=== PATIENT | female | born 1980 | race Caucasian/White ===

== ENCOUNTER 2021-05-26 12:23 | Emergency (ER) | payer SELFPAY ==
[2021-05-26 12:40] VITALS: TEMP 36.8; BMI 29.2
--- NOTE | 2021-05-26 12:46 | ED_ITS ---
HPI - Wound/Laceration General: Chief Complaint: Extremity Injury, Upper Stated Complaint: Cut Rght Arm Time Seen by Provider: 05/26/21 12:46 History of Present Illness: HPI narrative: Ms. Delgadillo is a 41-year-old lady without significant past medical history presents emergency department due to arm laceration. Laceration happened just prior to arrival. She was reaching down and cut it on a piece of glass from a picture frame that had a chip out of it. She immediately had nonpulsatile bleeding and pain. Pain is moderate intensity. Bleeding controlled with direct pressure. No other recent changes in health. She is up-to-date on tetanus estimates approximately 1.5 years ago. Review of Systems General: Reports: 10 or more systems reviewed and unremarkable except in HPI and below Physical Exam Narrative: EXAM NARRATIVE: GENERAL/CONSTITUTIONAL - well-appearing. No acute distress. Eyes - PERRL, no conjunctival injection ENMT - Atraumatic external nose and ears. Moist mucous membranes NECK - supple. trachea midline CARDIOVASCULAR - regular rate and rhythm. Peripheral pulses 2+ and equal RESPIRATORY -clear to auscultation bilaterally. No retractions or accessory muscle use. ABDOMEN/GI - Nontender/Nondistended. No tenderness to percussion or evidence of peritonitis MSK - Extremities without obvious deformity or tenderness to palpation SKIN - Warm, Dry. Laceration as noted in HPI, distal CMS intact. NEURO - alert and appropriately oriented. strength and sensation intact. Moves all extremities equally. PSYCH - Appropriate mood and affect Procedures Laceration Laceration 1: Site: upper extremity Side (If applicable): right Size (cm): 6 Description: flap and irregular Depth: simple, single layer Local Anesthetic: lidocaine 1% and with epi Amount of anesthesia used (mL): 10 Pre-repair: wound explored, irrigated extensively and deep structures intact Skin layer closed with: nylon Size (cm): 3-0 Number of sutures: 9 Technique: simple, interrupted Course ED course: - Patient was seen and evaluated by me at bedside -Vital signs obtained - Initial evaluation notable for no acute distress, nontoxic appearance. - Imaging notable for no foreign bodies - Laceration repaired, patient tolerated procedure well - Upon serial reexamination after treatment the patient was improved - Based on patient history, evaluation, labs, and imaging as interpreted the most likely cause of the patient's condition is laceration - The results of ED evaluation were discussed with the patient including prescriptions and/or symptomatic cares (if applicable) including appropriate and responsible use, followup plan, and return precautions. The patient verbalized understanding and felt safe for discharge. - Patient discharged in satisfactory condition. Vital Signs: Vital signs: Vital Signs Temperature 98.2 F 05/26/21 12:40 Pulse Rate 88 05/26/21 14:53 Respiratory Rate 15 05/26/21 14:53 Pulse Oximetry 100 05/26/21 14:53 MDM - Wound/Laceration Medical Records: Attestation: I reviewed the patient's medical records. Lab Data: Attestation: I reviewed the patient's lab results. Discharge Plan Discharge Patient Disposition: Home Clinical Impression: Arm laceration Condition: Stable Discharge Orders: Discharge ED (Routine); Ordered 05/26/21 Ordered By: Miguel Osbonre Discharge Diet: Usual diet Discharge Activity: Resume usual activity Patient Instructions: Care For Your Stitches (ED), Laceration (ED) Activity Restrictions/Additional Instructions: Thank you for visiting the emergency department. You were seen and evaluated f or arm laceration. This was repaired with sutures at bedside. Please follow care instructions given. Stitches need to be removed in 10 days. Please return for any signs of infection. Please follow-up with your primary care provider. Please return for anything else that you are concerned about and feel needs emergency department evaluation. Coding Level of Care Code ED Automotive Painter Helper for Oscar Santos
[2021-05-26 12:47] VITALS: RESP 15
--- NOTE | 2021-05-26 13:06 | XRR_ITS ---
PROCEDURE INFORMATION: Exam: XR Right Forearm Exam date and time: 05/26/2021 1:06 PM Age: 41 years old Clinical indication: Injury or trauma; Fall; Laceration; Arm, lower; Right; Additional info: Laceration, ? obvious foreign body TECHNIQUE: Imaging protocol: XR Right forearm. Views: 2 views. COMPARISON: No relevant prior studies available. FINDINGS: Bones/joints: Normal. Soft tissues: Foot laceration noted along the forearm. No evidence of radiopaque foreign body. XR/XR forearm RT 2V [id number] IMPRESSION: No evidence of radiopaque foreign body.
[2021-05-26 14:53] VITALS: PULSE 88; RESP 15; O2SAT 100
== END 2021-05-26 14:54 | disposition home or self-care (01) ==
PROVIDERS: Emergency Provider Emergency Medicine
DX: S41.111A Laceration without foreign body of right upper arm, initial encounter (principal); W25.XXXA Contact with sharp glass, initial encounter
CPT/HCPCS: 12002; 73090; 99282

== ENCOUNTER 2023-03-20 13:37 | Emergency (ER) | payer MEDICAID, SELFPAY ==
[2023-03-20 13:40] VITALS: BP 137/83; PULSE 92; RESP 18; TEMP 36.8; O2SAT 100; BMI 23.8
--- NOTE | 2023-03-20 14:13 | ED_ITS ---
HPI - Extremity Problem General: Chief complaint: Extremity Injury, Lower Stated complaint: left foot pain Time Seen by Provider: 03/20/23 13:41 Source: patient Mode of arrival: ambulatory History of Present Illness: 43-year-old female presents to the emergency room with complaint of sore on her left foot. She was seen yesterday for it and given a prescription however she was arrested last evening is currently incarcerated and never got her prescription filled. No fever sweats chills no drainage from the lesion Onset (ago): day(s) Pain Consistency: constant Location: right Radiation: none Relieving factors: nothing Exacerbating factors: nothing Associated symptoms: Deny chest pain or fever(s) Review of Systems Const: Denies: fever(s) or chills Card: Denies: chest pain, dyspnea on exertion or orthopnea Resp: Denies: dyspnea GI: Denies: abdominal pain Skin/Breast: Reports: new lesions; Denies: sores Physical Exam Const: GENERAL APPEARANCE: cooperative and comfortable ORIENTATION/CONSCIOUSNESS: Yes awake, Yes oriented to person, Yes oriented to place and Yes oriented to time HENMT: COMMON NORMALS: normocephalic, atraumatic and hearing grossly normal bilaterally HEAD & SCALP: normocephalic and atraumatic Resp: COMMON NORMALS: normal respiratory effort, No retractions, No use of accessory muscles and clear to auscultation bilaterally AUSCULTATION: clear to auscultation bilaterally Cardio: COMMON NORMALS: regular rate, regular rhythm and No murmurs present (Cardio) RATE: regular rate RHYTHM: regular rhythm Extremity: COMMON NORMALS: normal to inspection, capillary refill normal, no clubbing, cyanosis or edema, no calf tenderness and no pedal edema OTHER: 2 x 3 inch partially deroofed blister with localized erythema on the left medial arch. No active drainage Neuro: SENSORIUM/ORIENTATION: Yes oriented to person, Yes oriented to place and Yes oriented to time Course Vital Signs: Vital signs: Vital Signs Temperature 98.2 F 03/20/23 13:40 Pulse Rate 92 03/20/23 13:40 Respiratory Rate 18 03/20/23 13:40 Blood Pressure 137/83 03/20/23 13:40 Pulse Oximetry 100 03/20/23 13:40 Oxygen Delivery Me thod Room Air 03/20/23 13:40 MDM - Extremity (Nontraumatic) Medical Decision Making Mildly inflamed the roof blister. Patient is currently incarcerated given another prescription for the mupirocin and Bactrim completed as prescribed Medical Records I reviewed the patient's medical records. Lab Data I reviewed the patient's lab results. Discharge Plan Discharge Patient Disposition: Admitted As Inpatient Clinical Impression: Cellulitis and abscess of foot Condition: Stable Discharge Diet: Usual diet Discharge Activity: Resume usual activity Coding Level of Care Code ED Automation Control Integrator for Oscar Santos
[2023-03-20 14:16] VITALS: BP 137/83; PULSE 80; O2SAT 100
== END 2023-03-20 14:32 | disposition admitted as inpatient to this hospital (09) ==
PROVIDERS: Emergency Provider Family Medicine
DX: L03.116 Cellulitis of left lower limb (principal)
CPT/HCPCS: 99281

== ENCOUNTER → 2023-07-27 15:59 | Outpatient (BNVA) | payer MEDICAID, SELFPAY | PROVIDERS: PCP Family Medicine; Visit Provider Family Medicine | DX: Z00.00 Encounter for general adult medical examination without abnormal findings (principal) | CPT/HCPCS: 80053; 80061; 84443; 85025 ==

== ENCOUNTER 2023-08-06 11:07 | Outpatient (CLI) | payer MEDICAID, SELFPAY ==
--- NOTE | 2023-08-06 11:10 | MM_ITS ---
WS: [id number] Bilateral screening 3D tomosynthesis digital mammogram, 08/06/2023 Clinical Data: breast cancer screening Comparison: None. Findings: The breast parenchymal pattern shows heterogeneous density. No spiculated masses or clustered calcifi cations are seen. There are no secondary signs of carcinoma. Impression: 1. Negative bilateral mammogram with no prior exam for review. 2. Recommend annual screening mammograms. MM/[place] [id number] BIRADS: 1-Negative FOLLOW UP: 1 Year Follow-up The CAD blast furnace checker was used.
== END 2023-08-06 11:08 | disposition home or self-care (01) ==
LOC: RAD 11:07
PROVIDERS: PCP Family Medicine; Visit Provider Family Medicine
DX: Z12.31 Encounter for screening mammogram for malignant neoplasm of breast (principal); Z00.00 Encounter for general adult medical examination without abnormal findings
CPT/HCPCS: 77063; 77067; 80053; 80061; 84443; 85025

== ENCOUNTER → 2023-09-17 10:59 | Outpatient (BNVA) | payer MEDICAID, SELFPAY | PROVIDERS: PCP Family Medicine; Visit Provider Family Medicine | DX: B19.20 Unspecified viral hepatitis C without hepatic coma (principal) | CPT/HCPCS: 80053; 80061; 80074; 84443; 85025; 87522; 87806; 87902 ==

== ENCOUNTER → 2023-12-01 12:26 | Outpatient (BNVA) | payer MEDICAID, SELFPAY | PROVIDERS: PCP Family Medicine; Visit Provider Family Medicine | DX: B19.20 Unspecified viral hepatitis C without hepatic coma (principal) | CPT/HCPCS: 87522 ==

== ENCOUNTER → 2023-12-30 07:59 | Outpatient (BNVA) | payer MEDICAID, SELFPAY | PROVIDERS: PCP Family Medicine; Visit Provider Family Medicine | DX: Z01.818 Encounter for other preprocedural examination (principal); R07.9 Chest pain, unspecified; Z95.5 Presence of coronary angioplasty implant and graft | CPT/HCPCS: 93005 ==

== ENCOUNTER 2024-01-14 07:10 | Outpatient (CLI) | payer MEDICAID, SELFPAY ==
[2024-01-14 07:31] VITALS: BMI 31.1
--- NOTE | 2024-01-14 07:34 | ECG_ITS ---
[facility] Test Date: 2024-01-14 Pat Name: Ruby Delgadillo Department: Room: Gender: Female Service Tech/Welder: : 1980 Requested By: Jadyn Graham Order Number: [id number] Gross MD: Kristel Puentes M.D. Interpretive Statements NAME OF STUDY: EXERCISE SESTAMIBI STRESS TEST INDICATION: CHEST PAIN; HX OF CAD PROCEDURE: The baseline electrocardiogram showed [normal sinus rhythm with poor R wave progression and some nonspecific T wave changes. At the baseline, the patient's blood pressure was 124/90 mm Hg with a heart rate of 79. The patient exercised for 6 minutes and 8 seconds on a modified Evangelista protocol. Patient attained a maximum heart rate of 156 beats per minute(89% of the maximum predicted heart rate) with a blood pressure at the peak exercise of 173/87 mm Hg. The EKG at the peak exercise revealed [address] depressions in leads II, 3, aVF, V4 to V6. Patient did not have any chest pain or any significant arrhythmis with the exercise Sestamibi was injected 1 minute prior to the peak exercise During the recovery phase, there were no new changes. Patient was complaining of shortness of breath, leg fatigue and dizziness with exercise Blood pressure at the end of the recovery phase was 134/77 mm Hg with a heart rate of 98 per minute. CONCLUSION: 1. Abnormal EKG response to [treadmill exercise suggesting inferolateral wall ischemia 2. No exercise-induced chest pain or cardiac arrhythmia 3. Slightly impaired exercise tolerance, attained a maximum of 8.6 METs 4. Sestamibi/Sestamibi perfusion results pending; see separate report. Electronically Signed On 01-18-2024 18:49:07 CDT by Kristel Puentes M.D. [email or web address]
--- NOTE | 2024-01-14 07:35 | NMCV_ITS ---
NM mary perf SPECT r/s* [id number] Ruby Delgadillo Age: 43 Gender: F : 1980 Exam Date: 01/14/2024 07:35 Ordering Phys: Jadyn Graham MD Technologist: MARRY Miller Exam Location: [facility] Indications: CHEST PAIN STRESS TEST Please see separate stress test report in [facility] for full findings IMAGE PROTOCOL Rest/Stress 1 Exercise Day Radiopharmaceutical Dose (mCi) Administration Site Administered by Rest: Tc-99m 10.6 IV MARRY Baez Sestamibi Stress:Tc-99m 32.6 IV MARRY Baez Sestamibi Rest: 14-Jan-2024 60 Discovery 630 Stress: 14-Jan-2024 30 Discovery 630 Radiopharmaceutical was injected at 85 % maximum heart rate. Images obtained in supine and prone position. SPECT RESULTS Technical Quality: Excellent Raw Data Analysis: Normal Image Corrections: No attenuation or motion correction applied Summed Stress Score: 17 Summed Rest Score: 18 Summed Difference Score: 1 PERFUSION FINDINGS Moderate area of moderate to severely decreased tracer uptake involving the inferior, inferolateral and apical regions that there is slight reversibility in the basal inferolateral region FUNCTIONAL RESULTS (calculated via Gated SPECT) Stress Image LV EF (%): 62 Stress EDV (mL):150 TID: 0.96 Stress ESV (mL):57 FUNCTIONAL FINDINGS: Segmental wall motion analysis revealing no gross wall motion abnormalities IMPRESSIONS 1. Myocardial perfusion imaging revealing moderate area of moderate to severely decreased persistent tracer uptake involving the inferior, inferolateral and apical regions with a small area of slight reversibility in the inferolateral region suggesting myocardial scarring involving the distribution of the right coronary artery/circumflex artery with a small area of [place]-infarction ischemia 2. Normal LV ejection fraction of 62%. 3. LV wall motion analysis revealing no gross wall motion abnormalities. 4. Mildly dilated LV cavity No similar previous studies are available for comparison Dr Kristel Puentes MD FACC (Electronically Signed) Final Date: 14 Jan 2024 12:56 S
[2024-01-14 09:33] VITALS: BP 143/72; PULSE 88
== END 2024-01-14 07:11 | disposition home or self-care (01) ==
PROVIDERS: PCP Family Medicine; Visit Provider Family Medicine
DX: R07.9 Chest pain, unspecified (principal); Z95.5 Presence of coronary angioplasty implant and graft; R94.39 Abnormal result of other cardiovascular function study
CPT/HCPCS: 36415; 78452; 93017; A9500

== ENCOUNTER 2024-03-24 07:34 | Outpatient (CLI) | payer MEDICAID, SELFPAY ==
--- NOTE | 2024-03-24 07:30 | XACV_ITS ---
Exam Room: 2 Ht: 157 cm Wt: 84 kg BSA: 1.96 m2 Gender: Female : 1980 Any Known Allergies: Morphine Exam Priority: Routine Procedure(s): Procedure Description: Diagnostic procedure Procedure Description: Coronary Angiography Lexi REIS; Diagnostic Cath Status: Elective Diagnostic Findings * Patient with longstanding history of polysubstance abuse and coronary artery disease. Right coronary artery stent placed in 2013 which was patent in 2014. Recently came back to the office with shortness of breath and atypical chest discomfort. Stress testing revealed a moderate to severe abnormality in the distribution of the right coronary artery. Angiography was recommended. The procedure was done from the right common femoral artery due to inability to engage the left main at previous attempts through the radial artery. Patient is exceedingly anxious so attempts to even minimally sedate her were unsuccessful. * Coronary angiography reveals right coronary artery dominance. The left main coronary artery is normal and bifurcates into the LAD and circumflex. The LAD is normal aside from some minimal plaquing. There is modest disease in the first diagonal but otherwise the artery is normal. The circumflex gives off 2 marginal branches and is normal. The right coronary artery is a large dominant vessel. It is occluded at the ostium. The previously placed stent is in the midportion of the vessel. Angiographically, this appears to be a chronic total occlusion. There is good collateral flow to the distal right from the left system most prominently the LAD. I put a guide in the ostium of the artery and made a brief attempt to place a wire through the chronic total occlusion. It was unsuccessful. Conclusions 1. Normal left coronary artery system. 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 Recommendations * Medical therapy. Interventional RX Recommendation: medical therapy and/or counseling Diagnostic RX Recommendation: medical therapy and/or counseling Pressures Phase:Rest AO : 108 / 78 ( 92 ) @ 10:06:00 AM 113 / 74 ( 89 ) @ 10:15:00 AM Clinical Evaluation EBL: 5mL-10mL Procedural Details Procedure Consent Obtained. Pre-Procedure Time Out. Identified patient by full name and date of as verbalized by the patient/guarantor. Does the consent match the physician's order: Yes. Accurate & Complete Informed Consent: Yes. Inpatient/Outpatient History & Physical on Chart: Yes. If H&P is completed, is and addenduem needed: No; If yes, is the addendum complete: N/A. Visualize and Verify Site with Patient/Guarantor: N/A. Relevant Radiology Images available: Yes. Pre-op teaching completed and patient verbalized understanding. The risks, benefits, and alternatives of sedation and/or procedure were discussed by physician. The patient agrees to continue. Procedure started. Physician arrived. Current Diagnosis : Chest Pain. [facility] Clinical Fraility Score: 3: Managing Well. Labor Arbitrator Hearing Office Indications: Worsening Angina. Chest Pain Symptom Assessment: Typical Angina Symptoms. Correct patient, site and procedure confirmed by cath team. Current diagnosis: Chest Pain. PERRLA. Strong, equal hand pouncing machine operator bilaterally. Lungs clear x 5 lobes. IV Site on Arrival: 22 gauge in the left forearm. IV Fluids: 0.9% NaCl at KVO. 0 mL infused prior to lab scientist. Pre Procedural Pulses: bilateral dorsalis pedis was 3+. Pre Procedural Pulses: bilateral posterior tibial was 3+. Pre Procedural Pulses: bilateral radial was 3+. Oxygen started at 2liters/min via nasal canula. bilateral groins was prepped with chloroprep then draped in the usual sterile fashion. Baseline sample Acquired. HR: 87 BPM. Physician scrubbed in. Immediate Pre-Procedure Time Out. Correct Patient: Yes; Correct Procedure: Yes; Correct Site: Yes; Correct Patient Position: Yes; Correct Supplies: Yes; Dried Flammable Prep: Yes; Blood Products Available: N/A;. Lidocaine 1% infiltrated to the right groin. Arterial access obtained. A 5 namibian JL4 catheter in over wire. Multiple views taken of left coronary artery. Catheter removed over the standard wire. A 5 namibian JR4 catheter in over wire. Multiple views taken of right coronary artery. Catheter out. 6 namibian JR 4 guide catheter was inserted over the wire. Wire out. Ten Sleep guidewire was advanced through the guide catheter to lesion in the prox RCA. Unable to cross lesion, guidewire removed. Guide catheter and wire out. A Suture was successful obtaining hemostatsis at the Right Femoral artery insertion site. Sheath(s) sutured into position with 2-0 silk and sterile 4x4's and Op-site applied over the site. No oozing or signs and symptoms of hematoma noted. Arterial sheath flushed and connected to tranducer and pressure bag with heparinized saline. Post Procedure: Pulses reassessed and unchanged. PERRLA. Strong, equal hand pouncing machine operator bilaterally. No VTE prophylaxis required. Medication's Wasted: Lidocaine 1% = 10 mL. Medication's Wasted: Heparin = 4000 unit. Total IV fluids: 30 mL. Post-op diagnosis: CAD. Complications: None. Estimated blood loss: 5mL-10mL. Responsiveness - Normal response to verbal stimuli; alert and oriented, PERRLA. Airway - Unaffected, no intervention required; spontaneous ventilation. Circulation: W/N/L, pulses unchanged. Nausea/Vomiting: No. Procedure completed. Patient transferred by bed to 1st floor. Vital chart was stopped. Access Site Site: Right Femoral artery Sheath Size: 6 Fr Hemostasis Method: Suture Hemostasis Success: Successful Procedure Medications Start: 8:51 AM Stop: 8:51 AM Medication: Versed Amount: 1 mg Route: I.V. Start: 8:51 AM Stop: 8:51 AM Medication: Fentanyl Amount: 50 mcg Route: I.V. Start: 8:55 AM Stop: 8:55 AM Medication: Versed Amount: 1 mg Route: I.V. Start: 8:58 AM Stop: 8:58 AM Medication: Fentanyl Amount: 25 mcg Route: I.V. Start: 9:01 AM Stop: 9:01 AM Medication: Versed Amount: 1 mg Route: I.V. Start: 9:14 AM Stop: 9:14 AM Medication: Versed Amount: 1 mg Route: I.V. Start: 9:14 AM Stop: 9:14 AM Medication: Fentanyl Amount: 25 mcg Route: I.V. I, the attending physician, have reviewed and verified all procedure medications. Yes, all medications given per verbal order History/Risk Factors Hypertension: No Dyslipidemia: No Peripheral Arterial Disease (PAD): No Myocardial Infarction (NC): Yes Obesity: No Renal Disease: No Tobacco Use: Current/Recent(w/in 1 year) Prior Interventions PCI: Yes CABG: No Valve Surgery: No Date of PCI: 08/23/2010 Report Signatures Finalized by Dr. Cristóbal Elliott MD on 03/24/2024 09:29 AM
[2024-03-24] MEDS: diphenhydrAMINE 50 mg Capsule PO (08:00)
[2024-03-24] MEDS: aspirin 325 mg Tablet PO (08:00)
[2024-03-24 08:11] VITALS: BP 129/90; PULSE 106; RESP 18; TEMP 37.1; O2SAT 92; BMI 34.0
[2024-03-24 08:15] LABS: Basophils % 0.5 %; Eosinophils % 0.2 %; Hematocrit 40.9 % (36-47); Lymphocytes # 2.4 10^3/uL (0.8-4.8); Mean Corpuscular Hemoglobin 28.1 pg (27-33); Mean Corpuscular Volume 85.2 fl (85-98); Mean Platelet Volume 9.4 fL (7.4-10.4); Monocytes # 1.6 10^3/uL (0.2-0.9); Monocytes % 18.1 %; Neutrophils # 4.53 10^3/uL (1.8-7.7); Nucleated Red Blood Cells % 0 %; Platelet Count 307 10^3/cmm (157-399); Red Cell Distribution Width 13.9 % (12.1-15.1); White Blood Count 8.56 10^3/uL (3.29-11.43)
--- NOTE | 2024-03-24 08:24 | W.PM.OPSUD ---
Surgery/Procedure H&P Update DATE OF PROCEDURE: March 24, 2024 DATE H&P PERFORMED: 03/14/24 H&P UPDATE INFORMATION: I have reviewed H&P completed within last 30 days, I have examined patient prior to procedure and No changes to prior documentation PREOP DIAGNOSIS: Chest pain, abnormal stress test, known coronary artery disease PLANNED PROCEDURE: Operation Date: 03/24/24 08:30 Proposed Procedures p Cardiac Catheterization - [facility] w/wo LV and coros(Left) - Cristóbal Elliott MD
[2024-03-24 08:47] LABS: Chloride 103 mmol/L (98-107); Potassium 3.7 mmol/L (3.5-5.1); Sodium 138 mmol/L (136-145)
[2024-03-24 08:53] LABS: Anion Gap 16.6 (5-19); Blood Urea Nitrogen 11 mg/dL (6-20); Calcium 8.9 mg/dL (8.5-10.5); Carbon Dioxide 22 mmol/L (22-29); Creatinine Clr Calc Pharmacy 88.5103; Glomerular Filtration Rate 77.2 mL/min (90-130); Glucose 93 mg/dL (65-115); Osmolality Calculated 283 mOsm/kg (285-295)
[2024-03-24 09:53] VITALS: BP 108/70; PULSE 75; RESP 13; TEMP 36.7; O2SAT 97
--- NOTE | 2024-03-24 09:55 | PC.NURSE ---
Patient is requesting a nicotine patch. Provider ordered. Order placed.
[2024-03-24] MEDS: nicotine 14 mg Patch 1 PATCH TRANSDERMA (10:28)
[2024-03-24] MEDS: sodium chloride 0.9% 1,000 ML 100 ML IV (10:30)
--- NOTE | 2024-03-24 10:34 | P.DS_ITS ---
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 In 2014 it was open. She came to me a couple weeks ago with frequent episodes of chest pain taking multiple nitroglycerin per day. Stress testing was abnormal in the distribution of the right coronary artery. She was brought in for elective angiography. Hospital Course Hospital Course The procedure was done from the right common femoral arteries given previous attempts through the right radial artery failed due to inability to intubate the left main coronary artery. The left coronary artery system is normal. The right coronary artery is occluded at the ostium. The stent is in the mid vessel. A brief attempt to place a wire through the chronic total occlusion was unsuccessful. She will be treated medically. At the time of discharge her right groin was flat, dry without bleeding or hematoma. She is quite nervous about this and requested something for the frequent episodes of chest pain. I will place her on a long-acting nitrate. Physical Exam Narrative: GENERAL: In general she looks and feels well HEENT: Exam within normal limits. NECK: Supple without jugular vein distention. The carotid upstroke is normal without bruits. BACK: Exam normal. LUNGS: Clear. HEART: Regular rate and rhythm. ABDOMEN: Benign without organomegaly or tenderness. EXTREMITIES: No edema. The right groin is flat, dry without hematoma, bleeding or vascular anomaly. NEUROLOGIC: Exam normal. SKIN: Unremarkable. Discharge Data Studies Completed and Pending Completed Studies During Hospitalization Category Date Time Status CASH MANAGEMENT OFFICER request for service Routine Exams 03/24/24 07:30 Completed Laboratory Results WBC 8.56 10^3/uL (3.29-11.43) 03/24/24 08:04 RBC 4.80 10^6/uL (3.85-5.65) 03/24/24 08:04 Hgb 13.50 g/dL (11.27-16.99) 03/24/24 08:04 Hct 40.9 % (36-47) 03/24/24 08:04 MCV 85.2 fl (85-98) 03/24/24 08:04 MCH 28.1 pg (27-33) 03/24/24 08:04 MCHC 33.0 g/dL (30-55) 03/24/24 08:04 RDW 13.9 % (12.1-15.1) 03/24/24 08:04 Plt Count 307 10^3/cmm (157-399) 03/24/24 08:04 MPV 9.4 fL (7.4-10.4) 03/24/24 08:04 Neut % (Auto) 53.0 % 03/24/24 08:04 Lymph % (Auto) 28.0 % 03/24/24 08:04 [place] % (Auto) 18.1 % 03/24/24 08:04 Eos % (Auto) 0.2 % 03/24/24 08:04 Baso % (Auto) 0.5 % 03/24/24 08:04 Neut # (Auto) 4.53 10^3/uL (1.8-7.7) 03/24/24 08:04 Lymph # (Auto) 2.4 10^3/uL (0.8-4.8) 03/24/24 08:04 [place] # (Auto) 1.6 10^3/uL (0.2-0.9) H 03/24/24 08:04 Eos # (Auto) 0.0 10^3/uL (0.0-0.8) 03/24/24 08:04 Baso # (Auto) 0.0 10^3/uL (0.0-0.1) 03/24/24 08:04 Nucleated RBC % (auto) 0 % 03/24/24 08:04 Nucleated RBCs # 0.0 /100WBC 03/24/24 08:04 Sodium 138 mmol/L (136-145) 03/24/24 08:04 Potassium 3.7 mmol/L (3.5-5.1) 03/24/24 08:04 Chloride 103 mmol/L (98-107) 03/24/24 08:04 Carbon Dioxide 22 mmol/L (22-29) 03/24/24 08:04 Anion Gap 16.6 (5-19) 03/24/24 08:04 BUN 11 mg/dL (6-20) 03/24/24 08:04 Creatinine 0.8 mg/dL (0.5-0.9) 03/24/24 08:04 GFR Calculation 77.2 mL/min (90-130) L 03/24/24 08:04 Glucose 93 mg/dL (65-115) 03/24/24 08:04 Calculated Osmolality 283 mOsm/kg (285-295) L 03/24/24 08:04 Calcium 8.9 mg/dL (8.5-10.5) 03/24/24 08:04 Procedures Performed Coronary angiography Vitals Last Vital Signs Temp 98.0 F 03/24/24 09:53 Pulse 75 03/24/24 09:53 Resp 13 03/24/24 09:53 BP 108/70 03/24/24 09:53 Pulse Ox 97 03/24/24 09:53 O2 Del Method Room Air 03/24/24 09:53 Discharge Plan Discharge Patient Disposition: Home Condition: Stable Prescriptions: New isosorbide mononitrate 30 mg tablet extended release 24 hr 30 mg PO DAILY Qty: 90 3RF Continued methadone 10 mg tablet 100 mg PO DAILY omeprazole 40 mg capsule,delayed release(DR/EC) 40 mg PO DAILY Qty: 30 0RF venlafaxine 150 mg capsule,extended release 24hr 150 mg PO DAILY Qty: 30 0RF docusate sodium 100 mg tablet 100 mg PO DAILY Qty: 30 0RF nitroglycerin 0.4 mg tablet, sublingual 0.4 mg sublingual Q5M PRN (Reason: chest pain) Qty: 100 0RF Rx Instructions: do not exceed 3 doses per episode Discharge Orders: Discharge Order (Routine); Ordered 03/24/24 Ordered By: Cristóbal Elliott Referrals: Krys Zepeda FNP [Nurse Practitioner] - 7-10 days (Check right groin and chemistry panel.) Discharge Diet: Usual diet Discharge Activity: Limit activity as instructed Patient Instructions: Opioid Safety Activity Restrictions/Additional Instructions: No lifting over 5 pounds for 2 days Discharge Attestations Time Spent in Discharge Care*: less than 30 min Quality Metrics Clinical Quality Measures [ No reported AMI, CVA or VTE this stay] Coding Level of Care Code 10863 Total time (in minutes) for Discharge: 30 Diagnoses History of heart artery stent Z95.5 Chest pain R07.9 Anxiety F41.9 Substance abuse in remission F19.11 GERD (gastroesophageal reflux disease) K21.9 Hepatitis C B19.20 CAD (coronary artery disease) I25.10
--- NOTE | 2024-03-24 10:35 | PC.NURSE ---
Patient arrived from [facility] with sheath intact at approx 0939. Sheath removed per protocol at 0950. Sheath pull uneventful. Patient educated on activity restrictions and verbalized understanding. Nurse will continue to monitor.
[2024-03-24 15:42] VITALS: BP 108/70; PULSE 75; RESP 13; TEMP 36.7; O2SAT 97
--- NOTE | 2024-03-24 16:23 | PC.NURSE ---
Discharge Note Patient discharged to home via POV accompanied by spouse. Discharge instructions reviewed with patient and/or sales representative rural power. Mobile pharmacy medications and/or prescriptions provided. Belongings/home medications returned.
== END 2024-03-24 16:24 | disposition home or self-care (01) ==
LOC: CCL 07:37 → CSU 10:31
PROVIDERS: PCP Family Medicine; Visit Provider Internal Medicine Cardiovascular Disease
DX: I25.10 Atherosclerotic heart disease of native coronary artery without angina pectoris (principal); I25.82 Chronic total occlusion of coronary artery; I25.2 Old myocardial infarction; Z95.5 Presence of coronary angioplasty implant and graft; F41.9 Anxiety disorder, unspecified; F19.11 Other psychoactive substance abuse, in remission; K21.9 Gastro-esophageal reflux disease without esophagitis; B19.20 Unspecified viral hepatitis C without hepatic coma
CPT/HCPCS: 36415; 80048; 85025; 93454; 96374; 96375; 99152; 99153; C1769; C1887; C1894; G0378; J1644; J2250; J3010; J7030; Q0163; Q9967

== ENCOUNTER → 2024-05-30 10:07 | Outpatient (BNVA) | payer MEDICAID, SELFPAY | PROVIDERS: PCP Family Medicine; Visit Provider Family Medicine | DX: Z12.4 Encounter for screening for malignant neoplasm of cervix (principal) | CPT/HCPCS: 87624 ==

== ENCOUNTER → 2024-09-26 16:13 | Outpatient (BNVA) | payer MEDICAID, SELFPAY | PROVIDERS: PCP Family Medicine; Visit Provider Family Medicine | DX: E66.9 Obesity, unspecified (principal) | CPT/HCPCS: 80053; 83036; 84443 ==

== ENCOUNTER 2025-04-03 13:31 | Outpatient (CLI) | payer MEDICAID, SELFPAY ==
--- NOTE | 2025-04-03 13:40 | MM_ITS ---
WS: [id number] BILATERAL 3D TOMOSYNTHESIS DIGITAL SCREENING MAMMOGRAPHY WITH CAD CLINICAL INFORMATION: breast cancer screening HISTORY: Screening mammogram. No current complaints. COMPARISON: 2022 TECHNIQUE: Bilateral CC and MLO views. FINDINGS: Scattered fibroglandular densities bilaterally. No suspicious focal mass, asymmetry, calcifications, or architectural distortion. No evidence of malignancy. Incidental intramammary lymph node upper outer RIGHT breast. A few incidental punctate calcifications RIGHT breast. MM/MM scr tomosynthesis [id number] IMPRESSION: DENSITY: There are scattered areas of fibroglandular density. BI-RADS: 2 - Benign. FOLLOW UP: 1 Year Follow-up Recommend return to annual screening mammography.
== END 2025-04-03 13:32 | disposition home or self-care (01) ==
LOC: RAD 13:34
PROVIDERS: PCP Family Medicine; Visit Provider Family Medicine
DX: Z12.31 Encounter for screening mammogram for malignant neoplasm of breast (principal); R92.323 Mammographic fibroglandular density, bilateral breasts; R92.1 Mammographic calcification found on diagnostic imaging of breast; N63.11 Unspecified lump in the right breast, upper outer quadrant
CPT/HCPCS: 77063; 77067

== ENCOUNTER 2025-06-06 07:42 | Day surgery (SDC) | payer MEDICAID, SELFPAY ==
[2025-06-06 07:58] VITALS: BP 128/93; PULSE 105; RESP 16; TEMP 36.2; O2SAT 97; BMI 32.0
--- NOTE | 2025-06-06 09:14 | ANES.PREANE2 ---
Pre-Anesthetic Assessment Height/Weight: Height 1.57 m Weight 79.379 kg Temp Pulse Resp BP Pulse Ox O2 Del Method 97.2 F L 105 H 16 128/93 97 Room Air 06/06/25 07:58 06/06/25 07:58 06/06/25 07:58 06/06/25 07:58 06/06/25 07:58 06/06/25 07:58 Operation Date: 06/06/25 09:30 Proposed Procedures p Colonoscopy 04484 G0105 R19.5(Not Applicable) - Pedro Weldon MD Familial anesthetic complications: None Was Beta Tamie taken within 24 hours: N/A Was Clonidine taken within 24 hours: N/A Last intake: Intake Last Liquid Date 06/05/25 Last Liquid Time 21:00 Last Solid Date 06/04/25 Last Solid Time 18:00 Social No alcohol and No tobacco Exam alert, oriented x 3, clear to auscultation bilaterally and regular rate & rhythm CV/HEM Coronary Artery Disease (stent) and Hypertension Hepatic Hepatitis Anesthetic Plan ASA status: 3 Anesthesia: MAC Risk of > 500 ml blood loss (7ml/kg in children): No Medications/Allergies Home Medications ?Medication ?Instructions ?Recorded ?Confirmed ?Last Taken ?Type methadone 10 mg tablet 100 mg PO DAILY 03/14/24 06/06/25 06/05/25 History metoprolol succinate 25 mg 12.5 mg (1/2 x 25 mg) PO DAILY #90 05/11/24 06/06/25 06/06/25 Rx tablet,extended release 24 hr tabs omeprazole 40 mg capsule,delayed 40 mg PO DAILY #30 caps 07/12/24 06/06/25 06/06/25 Rx release mupirocin 2 % topical ointment 1 applic topical BID #15 grams 02/22/25 06/06/25 1 Week Ago Rx (Centany) ~05/24/25 diclofenac sodium 1 % topical gel 2 g topical QID PRN pain #100 grams 03/29/25 05/31/25 05/31/25 Rx (Voltaren Arthritis Pain) ranolazine 1,000 mg 1,000 mg PO BID #180 tabs 04/26/25 06/06/25 06/06/25 Rx tablet,extended release,12 hr isosorbide mononitrate 60 mg 60 mg PO BID #180 tabs 05/11/25 06/06/25 06/06/25 Rx tablet,extended release 24 hr nitroglycerin 0.4 mg sublingual See Rx Instructions .Route 05/23/25 06/06/25 05/29/25 Rx tablet .COMPLEX #25 tabs topiramate 100 mg tablet 100 mg PO BID 06/06/25 06/06/25 06/06/25 History Allergies Allergy/AdvReac Type Severity Reaction Status Date / Time morphine Allergy ADR-Vomitin Verified 06/06/25 07:55 g Penicillins Allergy ADR-Vomitin Verified 06/06/25 07:55 g Current Medications Generic Name Dose Route Start Last Admin Trade Name Freq PRN Reason Stop Dose Admin Sodium Chloride 1,000 mls @ 15 mls/hr 06/06/25 07:49 06/06/25 08:09 Sodium Chloride 0.9% IV 06/07/25 07:48 15 mls/hr .Q24H PRN Administration COLONOSCOPY FLUIDS PFSH Anesthesia Medical History CAD (coronary artery disease) GERD (gastroesophageal reflux disease) Substance abuse in remission Anxiety Hepatitis C Surgical History History of heart artery stent History of tonsillectomy History of bilateral tubal ligation Family History Other Hypertension Denies family history of CAD (coronary artery disease) Cancer Stroke Social History Smoking and tobacco/nicotine status: never used tobacco/nicotine Quit status (tobacco/nicotine): considering quitting Alcohol intake: former Substance/Drug Use: former Date of last use: 05/22/23 Former substance use details: opiates, meth Lives independently: Yes Household members: significant other and children Number of children: 1 Current occupational status: unemployed Leisure activites: reading and other Leisure activities details: swimming, cooking Data Anesthesia Cardiac Studies: Sestamibi Stress Test (Cardiology) 01/14/24
--- NOTE | 2025-06-06 09:33 | W.PM.OPSUD ---
Surgery/Procedure H&P Update DATE OF PROCEDURE: June 06, 2025 DATE H&P PERFORMED: 05/15/25 H&P UPDATE INFORMATION: I have reviewed H&P completed within last 30 days, I have examined patient prior to procedure, No changes to prior documentation and Risks and benefits of the procedure reviewed CHANGES TO PREVIOUS DOCUMENTATION: I have explained the risks and benefits of a diagnostic colonoscopy and the patient agrees to proceed. Patient understands that hemoccult is not an alternative in this case and decides to proceed with colonoscopy. Had an extensive discussion with the patient. Answered all questions. Patient understands that the risks include a 1% risk of iatrogenic perforation and risk of aspiration. PLANNED PROCEDURE: Operation Date: 06/06/25 09:30 Proposed Procedures p Colonoscopy 36479 G0105 R19.5(Not Applicable) - Pedro Weldon MD
[2025-06-06 10:07] VITALS: BP 122/88; PULSE 85; RESP 16; TEMP 36.2; O2SAT 94
[2025-06-06 10:21] VITALS: BP 121/82; PULSE 78; RESP 16; O2SAT 97
--- NOTE | 2025-06-06 10:40 | ANE.PACU2 ---
Inpatient post-anesthesia follow up: Airway intact: Yes Vital signs: Temperature 97.2 F Pulse Rate 78 Respiratory Rate 16 Blood Pressure 121/82 Pulse Oximetry 97 Oxygen Delivery Me thod Room Air Oxygen Flow Rate Fraction of Inspir ed Oxygen Hydration adequate: Yes Nausea and vomiting: No Pain level: 1 Mental status: Baseline
[2025-06-06 11:10] LABS: OR HCG Qualitative Urine Negative (Negative)
== END 2025-06-06 10:40 | disposition home or self-care (01) ==
PROVIDERS: Anesthesiology; PCP Family Medicine; Visit Provider Student in an Organized Health Care Education/Training Program
PROC: 0DJD8ZZ Inspection of Lower Intestinal Tract, Via Natural or Artificial Opening Endoscopic (ICD-10-PCS; CPT 45378; principal; 2025-06-06 09:30)
DX: Z12.11 Encounter for screening for malignant neoplasm of colon (principal); R19.5 Other fecal abnormalities; K52.9 Noninfective gastroenteritis and colitis, unspecified; I25.10 Atherosclerotic heart disease of native coronary artery without angina pectoris; Z95.5 Presence of coronary angioplasty implant and graft; K21.9 Gastro-esophageal reflux disease without esophagitis; F41.9 Anxiety disorder, unspecified; Z87.891 Personal history of nicotine dependence
CPT/HCPCS: 45380; 81025; 88305; J2704; J7030

== ENCOUNTER 2025-06-24 14:54 | Emergency (ER) | payer MEDICAID, SELFPAY ==
--- OUTSIDE RECORDS SUMMARY | 2024-06-18 04:00 | XMS_ITS ---
Author Organization [facility] Address [address] [place] [address] Care Team Providers Care Patrol Judge Name Role Phone Wayne Stephenson Unavailable [phone] Migration, Provider Unavailable Unavailable REASON FOR VISIT EMR-[place] Encounters Encounter Location Date Provider Diagnosis Migrated_Facility 0 0 06/18/2024 Provider Migration Plan Of Treatment No Information Progress Notes * Ruby LOPEZDOB: [birth year] (45 yo F)Acc No.[id number]:06/18/2024 Patient: Jose SWAYER Ruby Figueroa :1980 A ge:44 Y S ex:Female Phone: Address:[facility] [address], [place], [address] Subjective: * Chief Complaints: * E MR-[place] * * Date:
--- OUTSIDE RECORDS SUMMARY | 2024-06-19 04:00 | XMS_ITS ---
Author Organization [facility] Address [address] [place] [address] Care Team Providers Care Strip Cutter Name Role Phone Wayne Stephenson Unavailable [phone] Migration, Provider Unavailable Unavailable Allergies Allergen (clinical drug ingredient) Drug/Non Drug Allergy documented on EMR Reaction Allergy Type Onset Date Status citalopram Citalopram Hydrobromide anxiety Drug Allergy 04/21/2008 Active Substance with penicillin structure and antibacterial mechanism of action (substance) Penicillins Unknown Drug Allergy 03/22/2008 Active REASON FOR VISIT EMR-[place] Encounters Encounter Location Date Provider Diagnosis Migrated_Facility 0 0 06/19/2024 Provider Migration Plan Of Treatment No Information Progress Notes * Ruby LOPEZ AnnDOB: [birth year] (45 yo F)Acc No.[id number]:06/19/2024 Patient: Jose SAWYER Ruby Figueroa :1980 A ge:44 Y S ex:Female Phone: Address:[facility], [place], [address] Subjective: * Chief Complaints: * E MR-[place] * Allergies: P enicillins: Allergy - Onset Date [id number] Hydrobromide: anxiety - Allergy - Onset Date 2008-04-21 * * Date:
[2025-06-24 14:59] VITALS: BP 153/78; PULSE 91; RESP 20; TEMP 36.7; O2SAT 94
--- OUTSIDE RECORDS SUMMARY | 2025-06-24 14:59 | XMS_ITS | Patient Health Record ---
Author Organization [facility] Address [address] [place] [address] Care Team Providers Care Watch Dial Stoner Name Role Phone Wayne Stephenson Unavailable [phone] Allergies Allergen (clinical drug ingredient) Drug/Non Drug Allergy documented on EMR Reaction Allergy Type Onset Date Status citalopram Citalopram Hydrobromide anxiety Drug Allergy 04/21/2008 Active Substance with penicillin structure and antibacterial mechanism of action (substance) Penicillins Unknown Drug Allergy 03/22/2008 Active Reason For Referral No Information Medications Medication SIG (Take, Route, Frequency, Duration) Notes Start Date End Date Status Pravachol 40 mg Tablet Take 1 tablet(s) by mouth at bedtime Oral; Duration: 30 Pravachol (Pravastatin) 40mg Tablet Take 1 tablet(s) by mouth at bedtime #30 (Thirty) tablet(s) 05/06/2012 Active Aspirin 325 MG Tablet 1 tab(s) po q pm Oral; Duration: 30 Aspirin (ASA) 325mg Caplet 1 tab(s) po q pm #30 (Thirty) tablet(s) 06/23/2011 Active NitroQuick 0.4 mg tablet, sublingual Dissolve 1 tablet(s) under the tongue may repeat every 5 minutes. Maximum of 3 doses in 15 minutes; Duration: 30 *please review for potential update for e-prescription and drug interaction check* NitroQuick 0.4mg Tablets, Sublingual Dissolve 1 tablet(s) under the tongue may repeat every 5 minutes. Maximum of 3 doses in 15 minutes 09/15/2011 Active Lisinopril 2.5 MG Tablet Take 1 tablet(s) by mouth daily Oral; Duration: 30 Lisinopril 2.5mg Tablet Take 1 tablet(s) by mouth daily #30 (Thirty) tablet(s) 05/06/2012 Active dilTIAZem HCl Take 1 tablet(s) by mouth daily; Duration: 30 *please review for potential update for e-prescription and drug interaction check* Diltiazem HCl 180mg Tablets, Extended Release Take 1 tablet(s) by mouth daily #30 (Thirty) tablet(s) 05/06/2012 Active Gabapentin 100 MG Capsule 1 cap(s) po tid Oral; Duration: 30 Gabapentin 100mg Capsules 1 cap(s) po tid #90 (Ninety) capsule(s) 02/21/2013 Active Pravastatin Sodium 40 MG Tablet Take 1 tablet(s) by mouth at bedtime Oral; Duration: 30 Pravastatin 40mg Tablet Take 1 tablet(s) by mouth at bedtime #30 (Thirty) tablet(s) 05/06/2012 Active ALPRAZolam 0.5 MG Tablet One tab po TID Oral; Duration: 90 Alprazolam 0.5mg Tablet One tab po TID 10/03/2011 Active Social History Social History Additional Details Category Social Info Options Details zzMigrated Social History Migrated Social History Occupation: Unemployed Marital Status: Children: 1 child Problems Problem Type SNOMED Code ICD Code Onset Dates Problem Status W/U Status Risk Notes Problem Low back pain (575151530) Low back pain (724.2) 2010 Active confirmed [id number]- Problem Hypercholesterolemia (40740278) Hypercholesterolemia (272.0) 2011 Active confirmed [id number]- Problem Tachycardia (7683955) Tachycardi a, NOS (785.0) 2011 Active confirmed [id number]- Problem Amphetamine dependence, continuous (304.41) 2011 Active confirmed [id number]- Problem Irregular menstrual cycle (82514752) Irregular menstrual cycle (626.4) 2010 Problem resolved confirmed [id number]- Problem Impetigo (90775714) Impetigo (684) 2008 Problem resolved confirmed [id number]- Problem Cough (76093750) Cough (786.2) 2009 Problem resolved confirmed [id number]- Problem Heartburn (12102047) Heartburn (787.1) 2008 Problem resolved confirmed [id number]- Problem Gynecological examination normal (883371099162113) Routine gynecological examination (V72.31) 2007 Problem resolved confirmed [id number]- Problem Generalized anxiety disorder (64440759) Anxiety, generalized (300.02) 2010 Problem resolved confirmed [id number]- Problem Thrombophlebitis of superficial veins of upper extremities (70430803) Phlebitis of antecubital vein (451.82) 2011 Problem resolved confirmed [id number]- Problem Tobacco abuse (7389038183) Tobacco abuse (305.1) 2010 Problem resolved confirmed [id number]- Problem Tobacco dependence (82912658) Tobacco dependence (305.1) 2011 Problem resolved confirmed [id number]- Problem Acne (76871247) Acne (706.1) 2008 Problem resolved confirmed [id number]- Problem Tobacco user (308378313) Cigarette smoking (305.1) 2010 Problem resolved confirmed [id number]- Problem Depressive disorder (50746467) Depressive disorder not elsewhere classified (311) 2008 Problem resolved confirmed [id number]- Problem Ear ache (919724428) Ear ache (388.71) 2009 Problem resolved confirmed [id number] [id number]- Problem Missed period (83512126) Missed period (626.4) 2009 Problem resolved confirmed [id number] [id number]- Problem Sinus tachycardia (36174275) Sinus tachycardia (427.89) 2008 Problem resolved confirmed [facility]-[id number] 5911- Problem Abdominal pain (69619874) Abdominal pain (789.09) 2009 Problem resolved confirmed [facility]-[id number] [id number]- Problem Needs influenza immunization (923863656) Vaccination against other viral diseases, Influenza (V04.81) 2010 Problem resolved confirmed [facility]-[id number] 5911- Problem Acute upper respiratory infection (18146446) Acute upper respiratory infection (465.8) 2009 Problem resolved confirmed [facility]-[id number] [id number]- Problem Neoplasm of uncertai n behavior of skin (42318345) Atypical skin lesion (238.2) 2009 Problem resolved confirmed [facility]-[id number] [id number]- Problem Acne rosacea (619749352) Acne rosacea (695.3) 2010 Problem resolved confirmed [facility]-[id number] [id number]- Problem Pain in female pelvi s (689946245) Female pelvic pain (625.9) 2009 Problem resolved confirmed [facility]-[id number] 5911- Problem URI (6451926519) URI (465.8) 2009 Problem resolved confirmed [facility]-[id number] [id number]- Problem Urinary tract infection (51865900) Urinary tract infection (595.0) 2010 Problem resolved confirmed [facility]-[id number] 5911- Problem Anterior chest wall pain (953804458) Anterior chest wall pain (786.52) 2010 Problem resolved confirmed [facility]-98 5911- Problem Adjustment disorder with depressed mood (52703388) Bereavement adjustment reaction (309.0) 2008 Problem resolved confirmed [facility]-[id number] 5911- Problem Acute myocardial infarction, subendocardial (410.72) 2011 Problem resolved confirmed [facility]-[id number] 5911- Problem Bereavement (46313051) Bereavement (V62.82) 2008 Problem resolved confirmed [facility]-[id number] 5911- Problem COPD - Chronic obstructive pulmonary disease (19145380) COPD (496) 2010 Problem resolved confirmed [facility]-[id number] 5911- Problem Acute upper respiratory infection (98174232) Upper respiratory illness (465.8) 2009 Problem resolved confirmed [facility]-[id number] 5911- Problem Nausea and vomiting (04941365) Nausea and vomiting (787.01) 2010 Problem resolved confirmed [id number]- Problem Hemorrhoids (disorder) (52803023) Hemorrhoids, external (455.3) 2011 Problem resolved confirmed [id number]- Problem Nausea (958894550) Nausea (787.02) 2009 Problem resolved confirmed [id number]- Plan Of Treatment No Information Medical (General) History Surgical History Surgery Date(Month/Year) NONE
--- OUTSIDE RECORDS SUMMARY | 2025-06-24 14:59 | XMS_ITS | Clinical Summary ---
Author Organization [facility] Address [address] [facility] Attn: [place] [address] Care Team Providers Care Associate Automation Engineer Name Role Phone Drake Russell MD Primary Care Provider [phone] Allergies Active Allergy Reactions Criticality Noted Date Comments Morphine Rash Low 10/19/2013 Penicillins Unknown 10/19/2013 Told as a child not to ever take (mother statement) Active Problems Problem Noted Date Diagnosed Date Hepatitis C antibody test positive 10/27/2013 Anxiety 10/27/2013 Leukocytosis 10/27/2013 History of drug abuse 10/27/2013 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/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 Immunizations Immunization Administration Dates Next Due (TDVAX)(7 YRS UP) TETANUS AN D DIPHTHERIA TOXOIDS, ADSORBED (2 LF OF TETANUS TOXOID AND 2 LF OF DIPHTHERIA TOXOID), 0.5ML (PF), IM 08/24/2009 Influenza A (H1N1) Vaccine IM 10/19/2013 Influenza Seasonal Unspecified Formulation IM Pneumococcal conjugate, unspecified formulation 08/24/2009 Family History Medical History Relation Name Comments Unknown Brother Unknown Father Unknown Mother Unknown Sister Other Son Asperger's synd umair Relation Name Status Comments Brother Alive Father Alive Mother Alive Sister Alive Son Alive Social History Tobacco Use Types Packs/Day Years Used Date Smoking Tobacco: Every Day Cigarettes Smokeless Tobacco: Never Alcohol Use Standard Drinks/Week Comments No 0 (1 standard drink = 0.6 oz pur e alcohol) Comments Unknown Sex and Gender Information Value Date Recorded Sex Assigned at Not on file Legal Sex Female 1:54 AM HARDWOOD SAWYER Gender Identity Not on file Sexual Orientation Not on file Plan of Treatment Health Maintenance Due Date Last Done Comments HEPATITIS B VACCINES (1 of 3 - 19+ 3-dose series) 01/23 HPV/Cotest (21-29) 1999 CERVICAL CANCER SCREENING 02/19/2008 HPV/Cotest (30-65) 02/19/2008 PAP SMEAR 02/19/2008 DTAP/TDAP/TD VACCINES (1 - Tdap) 08/25/2009 08/24/19 10 BREAST CANCER SCREENING 2018 COLORECTAL SCREENING 2023 Colorectal Cancer Screening 2023 FIT-DNA Q 3 years 2023 FIT/FOBT Q 1 year 2023 Flex Sig/CT Colonography Q 5 years 2023 INFLUENZA VACCINE (#1) 2025 05/24/2012 Medical Devices Implanted Type Area Bacteriology Technician Device Identifier Shelf Expiration Date Model / Serial / Lot Cath Dlys Glidepath 23cm Std [id number] Implanted: by Drake Cevallos MD (Quantity not on file) Catheter Right: Chest CR [employer] 05/23/2015 [id number] / / [id number] Description:RIJ access Dialy sis Cath [place] Path Care Teams Associate Automation Engineer Relationship Specialty Start Date End Date Drake Russell MD [address] [place] [address] PCP - General Family Practice 10/17/13
--- OUTSIDE RECORDS SUMMARY | 2025-06-24 14:59 | XMS_ITS | Clinical Summary ---
Author Organization [facility] Address [address] [place] [address] Phone Care Team Providers Care Social Work Job Titles Name Role Phone Drake Russell MD Primary Care Provider [phone] Allergies Active Allergy Reactions Criticality Noted Date Comments Morphine Rash Low 10/19/2013 Penicillins Unknown 10/19/2013 Told as a child not to ever take (mother statement) Medications methadone (DOLOPHINE) 10 mg Tablet Take 20 mg by mouth 3 times daily. Active oxyCODONE-acetam inophen (PERCOCET) 10-325 mg Tablet Take 1 Tab by mouth 3 times daily. Active pravastatin (PRAVACHOL) 40 mg tablet Take 40 mg by mouth Daily LATE. Active diltiazem SR 24 hour (DILACOR XR) 180 mg capsule Take 180 mg by mouth daily deli/bakery associate. Active omeprazole (PRILOSEC) 20 mg Capsule, Delayed Release(E.C.) Take 20 mg by mouth 2 times daily. Active isosorbide mononitrate SR 24 hour (IMDUR) 30 mg tablet Take 30 mg by mouth daily deli/bakery associate. Active lisinopril (PRINIVIL) 2.5 mg tablet Take 2.5 mg by mouth daily. Active clopidogrel (PLAVIX) 75 mg Tablet Take 75 mg by mouth daily. Active ALPRAZolam (XANAX) 1 mg tablet Take 1 mg by mouth 3 times daily. Active aspirin (ANUSHKA) 325 mg tablet Take 325 mg by mouth daily. Active nitroglycerin (NITROSTAT) 0.4 mg Tablet, Sublingual Place 0.4 mg under tongue every 5 minutes as needed for Chest Pain. Active artificial tear, hypromellose, 0.5 % solution Administer 1 Drop in both eyes every 6 hours as needed for Discomfort. 15 mL 0 4 Active nicotine (NICODERM CQ) 21 mg/24 hr patch Apply 1 Patch to skin as directed daily. 30 Patch 0 4 Active doxycycline hyclate (VIBRAMYCIN) 100 mg capsule Take 1 Cap by mouth 2 times daily. 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 Gender Identity Not on file Sexual Orientation Not on file Occupation Industry Job Start Date Job End Date Not on file Not on file Not on file Not on file Last Filed Vital Signs Vital Sign Reading Time Taken Comments Blood Pressure 121/75 10/26/2013 8:20 AM CIRCUIT BREAKER SUPERVISOR Pulse 104 10/26/2013 8:20 AM CIRCUIT BREAKER SUPERVISOR Temperature 36.6 C (97.9 F) 10/26/2013 8:20 AM CIRCUIT BREAKER SUPERVISOR Respiratory Rate 18 10/26/2013 8:20 AM CIRCUIT BREAKER SUPERVISOR Oxygen Saturation 96% 10/26/2013 8:20 AM CIRCUIT BREAKER SUPERVISOR Inhaled Oxygen Concentration - - Weight 78.7 kg (173 lb 8 oz) 10/24/2013 8:58 AM CIRCUIT BREAKER SUPERVISOR Height - - Body Mass Index - - Plan of Treatment Health Maintenance Due Date [...] 2025 05/24/2012 Medical Devices Implanted Type Area Early Childhood Associate Teacher Device Identifier Shelf Expiration Date Model / Serial / Lot Cath Dlys Glidepath 23cm Std [id number] Implanted: by Drake Cevallos MD (Quantity not on file) Explanted:(Qu antity not on file) Catheter Right: Chest [employer] 05/23/2015 [id number] / / [id number] Description:RIJ access Dialy sis Cath [place] [employer] Insurance MEDICAID [place] Advance Directives For more information, please contact: [phone] * Full Code (Latest Code Status on File) Date Activated Date Inactivated Comments 10/19/2013 4:00 PM 10/26/2013 3:49 PM Care Teams Social Work Job Titles Relationship Specialty Start Date End Date Drake Russell MD [address] [place] [address] PCP - General Family Practice 10/17/13
--- NOTE | 2025-06-24 15:26 | XRR_ITS ---
PROCEDURE INFORMATION: Exam: XR Nasal Bones Exam date and time: 06/24/2025 3:46 PM Age: 45 years old Clinical indication: Nose pain; Additional info: Blunt trauma to face/neck after fall; Multiple lacs to face/nose area TECHNIQUE: Imaging protocol: XR of the nasal bones. Views: Minimum of 3 views Total images: 3 COMPARISON: CR XR cervical spine 3V* [id number] 06/24/2025 3:46 PM FINDINGS: Paranasal sinuses: Well aerated. Bones/joints: Nondisplaced nasal bone fracture. Mild degenerative changes of the visualized portion of the superior spine, consistent with patient age. Soft tissues: Unremarkable. No manifestations of laceration, subcutaneous emphysema or unexpected retained soft tissue radiopaque foreign body. XR/XR nasal bones min 3V [id number] IMPRESSION: Nondisplaced nasal bone fracture.
[2025-06-24 15:32] VITALS: PULSE 76; RESP 18; O2SAT 99
--- NOTE | 2025-06-24 15:41 | CTR_ITS ---
PROCEDURE INFORMATION: Exam: CT Head Without Contrast Exam date and time: 06/24/2025 3:50 PM Age: 45 years old Clinical indication: Injury or trauma; Fall; Blunt trauma (contusions or hematomas); Injury details: Hit nose TECHNIQUE: Imaging protocol: Computed tomography of the head without contrast. Radiation optimization: All CT scans at this facility use at least one of these dose optimization techniques: automated exposure control; mA and/or kV adjustment per patient size (includes targeted exams where dose is matched to clinical indication); or iterative reconstruction. COMPARISON: No relevant prior studies available. RADIATION DOSE METRICS: Total DLP (mGy-cm): 1060.58 FINDINGS: Brain: Normal. No hemorrhage. Unremarkable white matter. No mass effect. Cerebral ventricles: No ventriculomegaly. Paranasal sinuses: Visualized sinuses are unremarkable. No fluid levels. Mastoid air cells: Visualized mastoid air cells are well aerated. Bones: Nondisplaced nasal bone fracture. No other fractures Soft tissues: Unremarkable. CT/CT head wo con* [id number] IMPRESSION: 1. Nondisplaced nasal bone fracture. 2. No evidence for intracranial injury.
--- NOTE | 2025-06-24 15:41 | XRR_ITS ---
PROCEDURE INFORMATION: Exam: XR Cervical Spine Exam date and time: 06/24/2025 3:46 PM Age: 45 years old Clinical indication: Neck pain; Additional info: Blunt trauma to face/neck after fall; Multiple lacs to face/nose area TECHNIQUE: Imaging protocol: Radiologic exam of the cervical spine. Views: 2 or 3 views. Total images: 3 COMPARISON: CR XR nasal bones min 3V [id number] 06/24/2025 3:46 PM FINDINGS: Bones/joints: Severe chronic generalized degenerative changes of the vertebral column, including multilevel osteophytes, degenerative disc height loss, vacuum disc phenomenon, and facet arthrosis, consistent with patient age. Occipital-C2 demonstrates moderate degenerative arthrosis of the anterior atlantodental interval. C5-C6 moderate disc height loss with circumferential osteophyte formation. C6-C7 severe disc height loss with circumferential osteophyte formation. Dystrophic calcification of the nuchal ligament posterior to the C4 and C5 spinous processes. No acute displaced fracture, subluxation or dislocation. Soft tissues: No pathologic prevertebral soft tissue swelling. Teeth: The patient is edentulous. XR/XR cervical spine 3V* [id number] IMPRESSION: 1. No acute displaced fracture, subluxation or dislocation. 2. Advanced age-appropriate degenerative spinal changes, with other chronic/non-acute findings as described above.
--- NOTE | 2025-06-24 15:41 | ED_ITS ---
HPI - Fall General: Chief Complaint: Fall Stated Complaint: Fall-Hit face Time Seen by Provider: 06/24/25 15:26 History of Present Illness: 45-year-old female presents emergency ro om after she fell off a rock wall about 3 to 4 feet in height. She landed primarily on her face she has a laceration across the bridge of her nose as well as an abrasion on her forehead. She denies loss conscious no other injuries. No vomiting no visual changes. Associated symptoms-after fall: Denies abdominal pain, chest pain or neck pain Related Data Home Medications ?Medication ?Instructions ?Recorded ?Confirmed methadone 10 mg tablet 100 mg PO DAILY 03/14/2403/17 Previous Rx's ?Medication ?Instructions ?Recorded omeprazole 40 mg capsule,delayed 40 mg PO DAILY #30 ca ps 07/12/24 release mupirocin 2 % topical ointment 1 applic topical BID #1 5 grams 02/22/25 (Centany) diclofenac sodium 1 % topical gel 2 g topical QID PRN pain #100 grams 03/29/25 (Voltaren Arthritis Pain) ranolazine 1,000 mg 1,000 mg PO BID #180 tabs tablet,extended release,12 hr isosorbide mononitrate 60 mg 60 mg PO BID #180 tabs tablet,extended release 24 hr nitroglycerin 0.4 mg sublingual See Rx Instructions .R oute 05/23/25 tablet .COMPLEX #25 tabs metoprolol succinate 25 mg 12.5 mg (1/2 x 25 mg) PO DA MARQUES #90 06/16/25 tablet,extended release 24 hr tabs tizanidine 4 mg tablet 4 mg PO Q6H PRN muscle spast icity 06/24/25 #20 tabs topiramate 100 mg tablet See Rx Instructions .Route 1 08/26/24 .COMPLEX #60 tabs Allergies Allergy/AdvReac Type Severity Reaction Status Date / Time morphine Allergy ADR-Vomitin Verified 06/30/25 09:40 g Penicillins Allergy ADR-Vomitin Verified 06/30/25 09:40 g Review of Systems Const: Denies: fever(s) or chills Card: Denies: chest pain Resp: Denies: dyspnea GI: Denies: abdominal pain : Denies: dysuria, urinary frequency or urinary urgency Musc: Denies: neck pain or back pain Skin/Breast: Denies: rash PFSH ED PFSH: Medical History CAD (coronary artery disease) GERD (gastroesophageal reflux disease) Substance abuse in remission Anxiety Hepatitis C Surgical History History of heart artery stent History of tonsillectomy History of bilateral tubal ligation Family History Other Hypertension Denies family history of CAD (coronary artery disease) Cancer Stroke Social History Smoking and tobacco/nicotine status: never used tobacco/nicotine Quit status (tobacco/nicotine): considering quitting Alcohol intake: former Substance/Drug Use: former Date of last use: 05/22/23 Former substance use details: opiates, meth Lives independently: Yes Household members: significant other and children Number of children: 1 Current occupational status: unemployed Leisure activites: reading and other Leisure activities details: swimming, cook ing Physical Exam Const: GENERAL APPEARANCE: cooperative ORIENTATION/CONSCIOUSNESS: Yes awake, Yes oriented to person, Yes oriented to place and Yes oriented to time HENMT: COMMON NORMALS: normocephalic, atraumatic and hearing grossly normal bilaterally HEAD & SCALP: normocephalic and atraumatic Resp: COMMON NORMALS: normal respiratory effort, No retractions, No use of accessory muscles and clear to auscultation bilaterally AUSCULTATION: clear to auscultation bilaterally Cardio: COMMON NORMALS: regular rate, regular rhythm and No murmurs present (Cardio) RATE: regular rate RHYTHM: regular rhythm GI: COMMON NORMALS: Soft to palpation and No hepatosplenomegaly present AUSCULTATION: Yes normoactive bowel sounds PALPATION: Yes Soft to palpation, No Tenderness to palpation present (GI), No Guarding due to palpation present (GI) and Yes No hepatosplenomegaly present Extremity: COMMON NORMALS: normal to inspection, capillary refill normal, no clubbing, cyanosis or edema, no calf tenderness and no pedal edema Neuro: SENSORIUM/ORIENTATION: Yes oriented to person, Yes oriented to place and Yes oriented to time Skin: COMMON NORMALS: no rashes or lesions noted GENERAL SKIN EXAM: no rashes or lesions noted Course Vital Signs: Vital signs: Vital Signs Temperature 98.1 F 06/24/25 14:59 Pulse Rate 76 06/24/25 17:23 Respiratory Rate 18 06/24/25 15:32 Blood Pressure 123/79 06/24/25 17:23 Pulse Oximetry 97 06/24/25 17:23 Oxygen Delivery Me thod Room Air 06/24/25 14:59 MDM - Fall Medical Decision Making Nondisplaced nasal bone fracture no other significant findings. Neurologic exam normal. Will discharge patient home tizanidine as needed continue the diclofenac. Follow-up with primary care doctor. Nasal bone fracture nondisplaced will not need any intervention with this Lab Data I reviewed the patient's lab results. Radiology Impressions Nasal Bones X-Ray 06/24/25 15:26 IMPRESSION: Nondisplaced nasal bone fracture. Cervical Spine X-Ray 06/24/25 15:41 IMPRESSION: 1. No acute displaced fracture, subluxation or dislocation. 2. Advanced age-appropriate degenerative spinal changes, with other chronic/non-acute findings as described above. Head CT 06/24/25 15:41 IMPRESSION: 1. Nondisplaced nasal bone fracture. 2. No evidence for intracranial injury. Cervical Spine CT 06/24/25 16:20 IMPRESSION: 1. No fracture or malalignment. 2. Moderate to severe degenerative disc disease at C5-C6 and C6-C7. All radiology interpretation(s) finalized by discharge Discharge Plan Discharge Patient Disposition: Home Clinical Impression: Fall, Nasal bone fracture Condition: Stable Prescriptions: New tizanidine 4 mg tablet 4 mg PO Q6H PRN (Reason: muscle spasticity) Qty: 20 0RF Rx Instructions: do not exceed 3 doses per 24 hrs No Action mupirocin [Centany] 2 % ointment 1 applic topical BID Qty: 15 0RF methadone 10 mg tablet 100 mg PO DAILY diclofenac sodium [Voltaren Arthritis Pain] 1 % gel 2 g topical QID PRN (Reason: pain) Qty: 100 0RF Rx Instructions: apply to foot omeprazole 40 mg capsule,delayed release(DR/EC) 40 mg PO DAILY Qty: 30 0RF ranolazine 1,000 mg tablet extended release 12 hr 1,000 mg PO BID Qty: 180 3RF isosorbide mononitrate 60 mg tablet extended release 24 hr 60 mg PO BID Qty: 180 3RF nitroglycerin 0.4 mg tablet, sublingual See Rx Instructions .ROUTE .COMPLEX Qty: 25 0RF Dose Instruction: DISSOLVE ONE TABLET UNDER THE TONGUE EVERY 5 MINUTES NEEDED FOR CHEST PAIN. DO NOT EXCEED A TOTAL OF 3 DOSES IN 15 MINUTES Rx Instructions: DISSOLVE ONE TABLET UNDER THE TONGUE EVERY 5 MINUTES NEEDED FOR CHEST PAIN. DO NOT EXCEED A TOTAL OF 3 DOSES IN 15 MINUTES metoprolol succinate 25 mg tablet extended release 24 hr 12.5 mg PO DAILY Qty: 90 4RF topiramate 100 mg tablet See Rx Instructions .ROUTE .COMPLEX Qty: 60 1RF Dose Instruction: Take 1 tablet by mouth twice daily Rx Instructions: Take 1 tablet by mouth twice daily Discharge Orders: Discharge ED (Routine); Ordered 06/24/25 Ordered By: Bucky Deshpande Referrals: Jadyn Graham MD [Primary Care Provider, Family Practice] Discharge Diet: Usual diet Discharge Activity: Increase activity as tolerated Patient Instructions: Opioid Safety, Pain Management, Patient Portal & Felicita Instructions Activity Restrictions/Additional Instructions: Thank you for choosing [facility] for your healthcare needs today. It is very important that you follow up as instructed or that you return to the Emergency Department should you have concerns or if your condition changes or worsens in any way. Emergency department visits are focused on emergent conditions, in some cases you may require further evaluation on an outpatient basis. You were seen in the emergency room after a fall. Imaging showed a nondisplaced nasal bone fracture otherwise no acute findings. Will discharge you home. You had a small laceration on the bridge of his nose was treated with a Steri-Strip. Follow-up with your primary care doctor as needed. Return to the emergency room if you have any further difficulty. (Please note that included in your discharge packet is information concerning opioid safety and pain management. This information is given to all patients were discharged from the ER regardless of their discharge diagnosis or the medicines they usually take or are prescribed.) Print Language: Kyrgyz Coding Level of Care Code ED Cytology Laboratory Manager for Oscar Santos
[2025-06-24] MEDS: HYDROcodone-acetaminophen 5-325 mg Tablet 1 TAB PO (15:46)
--- NOTE | 2025-06-24 16:20 | CTR_ITS ---
PROCEDURE INFORMATION: Exam: CT Cervical Spine Without Contrast Exam date and time: 06/24/2025 4:20 PM Age: 45 years old Clinical indication: Injury or trauma; Fall; Blunt trauma; Additional info: Fall, neck pain TECHNIQUE: Imaging protocol: Computed tomography of the cervical spine without contrast. Radiation optimization: All CT scans at this facility use at least one of these dose optimization techniques: automated exposure control; mA and/or kV adjustment per patient size (includes targeted exams where dose is matched to clinical indication); or iterative reconstruction. COMPARISON: CR XR cervical spine 3V* [id number] 06/24/2025 3:46 PM RADIATION DOSE METRICS: Total DLP (mGy-cm): 218.27 FINDINGS: Bones: No fracture or malalignment. The C5-C6 disc reveals moderate discogenic osteophytes and uncinate hypertrophy. Mild spinal canal narrowing at this level. The C6-C7 disc reveals [id number] discogenic osteophytes and uncinate hypertrophy. Mild spinal canal narrowing at this level. Mild degenerative disc changes are present C3-C4. Moderate degenerative facet arthropathy on the left at C4-C5 and C7-T1 and on the right at C2-C3 and T1-T2. Lungs: Lung apices are normal. Soft tissues: Unremarkable. CT/CT cervical spin wo con* [id number] IMPRESSION: 1. No fracture or malalignment. 2. Moderate to severe degenerative disc disease at C5-C6 and C6-C7.
[2025-06-24 17:23] VITALS: BP 123/79; PULSE 76; O2SAT 97
== END 2025-06-24 17:24 | disposition home or self-care (01) ==
PROVIDERS: Emergency Provider Family Medicine; PCP Family Medicine
DX: S02.2XXA Fracture of nasal bones, initial encounter for closed fracture (principal); I25.10 Atherosclerotic heart disease of native coronary artery without angina pectoris; W17.89XA Other fall from one level to another, initial encounter
CPT/HCPCS: 70160; 70450; 72040; 72125; 99284; J9999